=== PATIENT | female | born 1935 | race Caucasian/White ===

== ENCOUNTER 2017-10-28 14:00 | Day surgery (SDC) | payer MEDICARE ==
[~2017-10-28] VITALS: Ht 162.6 cm; Wt 55.9 kg
[~2017-10-28 14:00] MED LIST: ALEN70 PO; AMLO5; AMLO5 PO; ASPI81CH; ASPI81CH PO; CELE200; CELE200 PO; CHOL10002 PO; DOCU100 PO; FLAX SEED OIL1 EACH PO; FLAXSEED PO; LEVSOD125 PO; LEVSOD137 PO; LORA1 PO; LOTE.5SUSP BOTHEYES; LOTEMAX3.5 GM; LUTEIN-ZEAXANT1 EACH PO; MULVITMIND PO; Multiple Vitam1 EACH PO; NEBI5; NEBI5 PO; OMEGA PO; OMEGA-3 + VITA1 EAC2 PO; Omega 3 1,0001 EACH PO; PENNSAID2 GM TOP; RALO60 PO; SV FLAXSEED OI1 EACH; WARF4 PO; [UNRECOGNIZED DRUG - OTHER] PO
== END 2017-10-28 15:45 | disposition home or self-care (01) ==
LOC: ORSCSDS 14:00
PROVIDERS: Anesthesiology
PROC: 3E0R33Z Introduction of Anti-inflammatory into Spinal Canal, Percutaneous Approach (ICD-10-PCS; principal; 2017-10-28 15:30)
DX: I25.10 Atherosclerotic heart disease of native coronary artery without angina pectoris (principal); G47.33 Obstructive sleep apnea (adult) (pediatric); E03.9 Hypothyroidism, unspecified; I10 Essential (primary) hypertension; F41.9 Anxiety disorder, unspecified; Z79.01 Long term (current) use of anticoagulants; Z79.82 Long term (current) use of aspirin; Z79.899 Other long term (current) drug therapy; M50.122 Cervical disc disorder at C5-C6 level with radiculopathy
CPT/HCPCS: J1040; J2250; J3010; J7040

== ENCOUNTER → 2019-04-11 | Outpatient (CLI) | payer MEDICARE | END | disposition home or self-care (01) | LOC: LAB 12:12 → LAB SHORT 12:12 | DX: R82.79 Other abnormal findings on microbiological examination of urine (principal) | CPT/HCPCS: 87077; 87086; 87186 ==

== ENCOUNTER → 2019-08-22 | Outpatient (CLI) | payer MEDICARE | END | disposition home or self-care (01) | LOC: LAB 07:43 → LAB SHORT 07:43 | DX: C44.311 Basal cell carcinoma of skin of nose (principal) | CPT/HCPCS: 88305 ==

== ENCOUNTER → 2019-09-18 | Outpatient (CLI) | payer MEDICARE ==
[~2019-09-18] MED LIST changes: +Aspirin EC81 MG PO; +Ativan1 MG PO; +CELECOXIB200 MG PO; +FISH OIL 1,0001 EAC1 PO; +GABA100 PO; +Jantoven4 MG; +LOTEMAX SM5 GM LEFTEYE; +MULTIPLE VITAM1 EACH PO; +Omega-31000 MG PO; +TORSE20 PO
== END | disposition home or self-care (01) ==
LOC: LAB SHORT 12:53 → PLD 12:53
DX: C44.311 Basal cell carcinoma of skin of nose (principal)
CPT/HCPCS: 88305

== ENCOUNTER 2019-10-22 14:10 | Day surgery (SDC) | payer MEDICARE ==
[~2019-10-22] VITALS: Ht 162.6 cm; Wt 53.9 kg
[~2019-10-22 14:10] MED LIST changes: -FISH OIL 1,0001 EAC1 PO
[2019-10-22] MEDS ORDERED: FISH OIL 1,0001 EAC1 PO (15:11)
--- NOTE | 2019-10-22 15:39 | NUR ---
10/22/19 1538 Gretchen Pinto PT RESTING IN BED, WITH FAMILY AT BEDSIDE. FRESH WARM BLANKETS & HOT PACKS PROVIDED PER REQUEST. CALL LIGHT WITHIN REACH, DENIES FURTHER NEEDS AT THIS TIME. UPDATED ON DELAY. PT VERBALIZES UNDERSTANDING, EUTHYMIC AFFECT.
== END 2019-10-22 18:25 | disposition home or self-care (01) ==
LOC: ORSCSDS 14:10
PROVIDERS: Podiatrist Foot & Ankle Surgery
PROC: 0QSN04Z Reposition Right Metatarsal with Internal Fixation Device, Open Approach (ICD-10-PCS; principal; 2019-10-22 16:00)
PROC: 0SQP0ZZ Repair Right Toe Phalangeal Joint, Open Approach (ICD-10-PCS; principal; 2019-10-22 16:00)
PROC: 0QSP04Z Reposition Left Metatarsal with Internal Fixation Device, Open Approach (ICD-10-PCS; principal; 2019-10-22 16:00)
DX: M77.42 Metatarsalgia, left foot (principal); M77.41 Metatarsalgia, right foot; M20.61 Acquired deformities of toe(s), unspecified, right foot; M20.62 Acquired deformities of toe(s), unspecified, left foot; I48.91 Unspecified atrial fibrillation; Z79.01 Long term (current) use of anticoagulants; E03.9 Hypothyroidism, unspecified; Z79.82 Long term (current) use of aspirin; Z79.899 Other long term (current) drug therapy
CPT/HCPCS: C1713; J0171; J0690; J1100; J1885; J2250; J2405; J2704; J3010; J7120

== ENCOUNTER 2020-05-07 12:15 | Day surgery (SDC) | payer MEDICARE ==
[~2020-05-07] VITALS: Ht 162.6 cm; Wt 55.3 kg
[~2020-05-07 12:15] MED LIST changes: +FISH OIL 1,0001 EAC1 PO
[2020-05-07] MEDS ORDERED: FML5 ML TOP (12:46)
== END 2020-05-07 13:32 | disposition home or self-care (01) ==
LOC: ORSCSDS 12:15
PROVIDERS: Anesthesiology
PROC: 3E0R33Z Introduction of Anti-inflammatory into Spinal Canal, Percutaneous Approach (ICD-10-PCS; principal; 2020-05-07 15:00)
DX: M51.16 Intervertebral disc disorders with radiculopathy, lumbar region (principal); K21.9 Gastro-esophageal reflux disease without esophagitis; I10 Essential (primary) hypertension; I48.0 Paroxysmal atrial fibrillation; Z79.82 Long term (current) use of aspirin; Z79.899 Other long term (current) drug therapy
CPT/HCPCS: J1040

== ENCOUNTER → 2020-07-05 | Outpatient (CLI) | payer MEDICARE ==
[~2020-07-05] MED LIST changes: +FML5 ML TOP
== END | disposition home or self-care (01) ==
LOC: LAB SHORT 09:00 → LAB 09:00
DX: N30.00 Acute cystitis without hematuria (principal); R30.0 Dysuria
CPT/HCPCS: 87077; 87086; 87186

== ENCOUNTER 2020-07-17 08:52 | Day surgery (SDC) | payer MEDICARE ==
[~2020-07-17] VITALS: Ht 162.6 cm; Wt 55.7 kg
== END 2020-07-17 09:50 | disposition home or self-care (01) ==
LOC: ORSCSDS 08:52
PROVIDERS: Anesthesiology
PROC: 3E0R33Z Introduction of Anti-inflammatory into Spinal Canal, Percutaneous Approach (ICD-10-PCS; principal; 2020-07-17 10:00)
DX: M51.16 Intervertebral disc disorders with radiculopathy, lumbar region (principal); I48.91 Unspecified atrial fibrillation; G47.30 Sleep apnea, unspecified; I10 Essential (primary) hypertension; E03.9 Hypothyroidism, unspecified; F32.9 Major depressive disorder, single episode, unspecified; Z79.82 Long term (current) use of aspirin; Z79.899 Other long term (current) drug therapy
CPT/HCPCS: J1040

== ENCOUNTER 2020-08-25 13:17 | Day surgery (SDC) | payer MEDICARE ==
[~2020-08-25] VITALS: Ht 160 cm; Wt 55.5 kg
[~2020-08-25 13:17] MED LIST changes: +FLAX PO; +JANTOVEN4 MG; +LEVO T PO; +LOTEMAX SM5 GM; +OMEGA-3 FISH O1 EAC6 PO; +TORSE20; +Voltaren100 GM
[2020-08-25] MEDS ORDERED: GABA400 PO (14:06)
== END 2020-08-25 15:48 | disposition home or self-care (01) ==
LOC: ORSCSDS 13:17
PROVIDERS: Podiatrist Foot & Ankle Surgery
PROC: 0SQM0ZZ Repair Right Metatarsal-Phalangeal Joint, Open Approach (ICD-10-PCS; principal; 2020-08-25 14:45)
PROC: 0QPQ04Z Removal of Internal Fixation Device from Right Toe Phalanx, Open Approach (ICD-10-PCS; principal; 2020-08-25 14:45)
DX: M20.61 Acquired deformities of toe(s), unspecified, right foot (principal); T84.84XA Pain due to internal orthopedic prosthetic devices, implants and grafts, initial encounter; I10 Essential (primary) hypertension; I48.91 Unspecified atrial fibrillation; Z79.01 Long term (current) use of anticoagulants; Z79.82 Long term (current) use of aspirin; E03.9 Hypothyroidism, unspecified; E78.5 Hyperlipidemia, unspecified; E78.2 Mixed hyperlipidemia; N18.30 Chronic kidney disease, stage 3 unspecified
CPT/HCPCS: J0171; J0690; J2704; J3010; J7120

== ENCOUNTER 2020-10-31 11:48 | Day surgery (SDC) | payer MEDICARE ==
[~2020-10-31] VITALS: Ht 162.6 cm; Wt 54.2 kg
[~2020-10-31 11:48] MED LIST changes: +GABA400 PO
--- NOTE | 2020-10-31 13:57 | NUR ---
10/31/20 1357 Michael Benítez BUPIVACAINE 0.5% 30 MLS MIXED WITH 0.15 EPI PER ORDER TO MAKE A CONCENTRATION OF BUPIVACAINE 0.5% 1:200,000 FOR INJECTION AT OPSITE BY DR. COLBY. 30 MLS OF BUPIVACAINE 0.5% 1:200,000 INJECTED AT OPSITE BY [address] COLBY.
[2021-02-16] MEDS ORDERED: Aspir 8181 MG PO (08:44)
[2021-02-16] MEDS ORDERED: OMEGA-3 FISH O1 EA13 PO (08:44)
[2021-02-16] MEDS ORDERED: NEBI5 PO (08:45)
[2021-02-16] MEDS ORDERED: TORSE20 PO (08:45)
[2021-02-16] MEDS ORDERED: RALO60 PO ×2 (08:46→08:48)
[2021-02-16] MEDS ORDERED: JANTOVEN4 M2 PO (08:47)
[2021-02-16] MEDS ORDERED: GABA100 PO (08:47)
[2021-02-16] MEDS ORDERED: Ativan1 MG PO (08:48)
[2021-02-16] MEDS ORDERED: LEVOTHYROXINE PO (08:48)
== END 2020-10-31 14:36 | disposition home or self-care (01) ==
LOC: ORSCSDS 11:48
PROVIDERS: Podiatrist Foot & Ankle Surgery
PROC: 0Y6R0Z0 Detachment at Right 2nd Toe, Complete, Open Approach (ICD-10-PCS; principal; 2020-10-31 13:15)
DX: M20.61 Acquired deformities of toe(s), unspecified, right foot (principal); I10 Essential (primary) hypertension; I48.0 Paroxysmal atrial fibrillation; G47.30 Sleep apnea, unspecified; Z79.01 Long term (current) use of anticoagulants; Z79.899 Other long term (current) drug therapy
CPT/HCPCS: 88305; 88311; J0171; J0690; J2704; J3010; J7120

== ENCOUNTER 2021-02-23 10:58 | Day surgery (SDC) | payer MEDICARE ==
[~2021-02-23] VITALS: Ht 162.6 cm; Wt 54.8 kg
[~2021-02-23 10:58] MED LIST changes: +Aspir 8181 MG PO; +JANTOVEN4 M2 PO; +LEVOTHYROXINE PO; +OMEGA-3 FISH O1 EA13 PO
[2021-02-23] MEDS ORDERED: WARF1 (11:13)
== END 2021-02-23 12:05 | disposition home or self-care (01) ==
LOC: ORSCSDS 10:58
PROVIDERS: Anesthesiology
PROC: 3E0R3BZ Introduction of Anesthetic Agent into Spinal Canal, Percutaneous Approach (ICD-10-PCS; principal; 2021-02-23 12:00)
PROC: 3E0R33Z Introduction of Anti-inflammatory into Spinal Canal, Percutaneous Approach (ICD-10-PCS; principal; 2021-02-23 12:00)
DX: M51.16 Intervertebral disc disorders with radiculopathy, lumbar region (principal); I48.91 Unspecified atrial fibrillation; Z79.01 Long term (current) use of anticoagulants; I10 Essential (primary) hypertension; E03.9 Hypothyroidism, unspecified; K21.9 Gastro-esophageal reflux disease without esophagitis; Z79.82 Long term (current) use of aspirin; Z79.899 Other long term (current) drug therapy
CPT/HCPCS: 36415; 85610; J1030; J1040

== ENCOUNTER → 2021-04-09 | Outpatient (CLI) | payer MEDICARE ==
[~2021-04-09] MED LIST changes: +WARF1
== END ==
LOC: LAB SHORT 11:52 → LAB 11:52
DX: D48.5 Neoplasm of uncertain behavior of skin (principal); C44.311 Basal cell carcinoma of skin of nose; Z88.8 Allergy status to other drugs, medicaments and biological substances
CPT/HCPCS: 88305

== ENCOUNTER → 2021-07-17 | Outpatient (CLI) | payer MEDICARE | END | disposition home or self-care (01) | LOC: LAB SHORT 10:50 | DX: N30.00 Acute cystitis without hematuria (principal) | CPT/HCPCS: 87077; 87086; 87186 ==

== ENCOUNTER → 2022-03-31 | Outpatient (CLI) | payer MEDICARE | END | disposition home or self-care (01) | LOC: LAB 11:38 → LAB SHORT 11:38 | DX: N30.00 Acute cystitis without hematuria (principal) | CPT/HCPCS: 87077; 87086; 87186 ==

== ENCOUNTER → 2022-10-26 | Outpatient (CLI) | payer MEDICARE | END | disposition home or self-care (01) | LOC: LAB 13:25 → LAB SHORT 13:25 | DX: N30.01 Acute cystitis with hematuria (principal); R35.0 Frequency of micturition | CPT/HCPCS: 87077; 87086; 87186 ==

== ENCOUNTER → 2025-07-29 | Outpatient (CLI) | payer OTHER | LOC: LAB 11:06 → LAB SHORT 11:06 | DX: D04.61 Carcinoma in situ of skin of right upper limb, including shoulder (principal) | CPT/HCPCS: 88305 ==